=== PATIENT | male | born 1940 | race Caucasian/White ===

== ENCOUNTER 2017-10-28 07:51 | Day surgery (SDC) | payer MEDICARE, OTHER ==
[~2017-10-28 07:51] MED LIST: RINGER'S SOLUTION,LACTATED 1,000 ML IV PRN
[2017-10-28] MEDS ORDERED: RINGER'S SOLUTION,LACTATED 1,000 ML IV ONE (08:29)
[2017-10-28] MEDS ORDERED: PANTOPRAZOLE SODIUM 40 MG in NORMAL SALINE 100 ML IV ONE (09:41)
[2017-10-28] MEDS ORDERED: RINGER'S SOLUTION,LACTATED 1,000 ML IV PRN (09:41)
[2017-10-28 10:43] VITALS: BP 153/71
--- NOTE | 2017-10-28 14:38 | OR ---
Operative Report - Dictated Report Narrative: Operative Report Date of operation: 10/28/2017 Preoperative diagnosis: Dysphagia Postoperative diagnosis: Esophageal stenosis. (CLOtest pending) Operation: EGD with biopsy and balloon dilation of the GE junction to 20 mm Surgeon: Dr Rodriguez Anesthesia: LUANNE HOUGH CRNA Indications for procedure: The patient is a 77-year-old male referred by Dr. Randolph. The patient has had progressive dysphagia for solid foods. He had a previous EGD in 2012 which revealed esophageal stricture which was dilated. Findings: Marked narrowing at the GE junction, successfully dilated to 20 mm. CLOtest pending Narrative of procedure: The patient was identified preoperatively, and prior to the administration of anesthetic a multidisciplinary timeout was observed With the patient in the recumbent position, a bite-block was placed, intravenous sedation administered, and the patient's eyes covered with a towel. The flexible fiberoptic gastroscope was advanced into the posterior pharynx which appeared normal. The supraglottic larynx appeared normal. The cords appeared normal, moved well, and opposed in the midline. The scope was advanced under direct vision into the proximal esophagus which appeared normal. The esophagus appeared freely distensible with normal mucosa. The esophageal mucosa appeared normal down to the gastroesophageal junction which was markedly stenotic. The scope could be carefully maneuvered through the area. The scope was advanced into the stomach which was insufflated with air. There was mild collazo gastric erythema but no martínez ulcerations or neoplastic lesions were appreciated including a retroflex view of the gastric fundus which demonstrated the normal gastric side of the GE junction. The scope was redirected toward the pylorus.. The pylorus appeared patent. The scope was advanced into the duodenal bulb which appeared normal. The scope was advanced further to the horizontal portion of the duodenum which appeared normal, specifically the villous architecture appeared well preserved and clear bile was present. The scope was slowly withdrawn through the duodenal bulb with confirmation that no active ulcer was present. The scope was withdrawn into the stomach and major account representative biopsy of gastric mucosa obtained for CLOtest. The biopsy site was seen to be hemostatic. A balloon dilator was deployed in the stomach and withdrawn to lie across the GE junction which was then dilated in stages to 20 mm. The balloon and passed freely through the area. There was no appreciable bleeding. The insufflated air was removed from the stomach, the scope withdrawn from the patient, and the procedure terminated. The patient tolerated the anesthetic and procedure well without complication and was transferred back to the ambulatory surgery area awake and in stable condition. The patient remained stable throughout a period of postoperative observation, was able to tolerate po intake, and was up without assistance. I shared the operative findings with him and his , and he was given copies of the photographs which appear in the medical record. He was given a single dose of Protonix 40 mg IV prior to discharge. He was discharged home with instructions not to engage in hazardous activity today, but may return to normal activity tomorrow and advance diet as tolerated. He is to continue medications as listed in the history and physical exam. I made arrangements to contact the patient with the biopsy reports and will make further recommendation based upon that result. Reviewed and electronically signed
== END 2017-10-28 07:52 | disposition home or self-care (01) ==
LOC: AMB 07:51
PROVIDERS: ATTEND Surgery
PROC: 0D748ZZ Dilation of Esophagogastric Junction, Via Natural or Artificial Opening Endoscopic (ICD-10-PCS; 2017-10-28)
PROC: 0DB68ZX Excision of Stomach, Via Natural or Artificial Opening Endoscopic, Diagnostic (ICD-10-PCS; principal; 2017-10-28 08:45)
DX: K21.9 Gastro-esophageal reflux disease without esophagitis (principal); K22.2 Esophageal obstruction; I10 Essential (primary) hypertension; E78.5 Hyperlipidemia, unspecified; Z87.891 Personal history of nicotine dependence; Z68.25 Body mass index [BMI] 25.0-25.9, adult